=== PATIENT | female | born 1975 | race Caucasian/White ===

== ENCOUNTER 2017-11-11 15:07 | Emergency (ER) | payer BC ==
[2017-11-11 15:57] VITALS: BP 137/85
--- NOTE | 2017-11-11 16:42 | UC ---
Azalia Le Gabriel, scribed for Michael Suggs MD on 11/11/17 at 1540 . Cardiac HPI - HPI Summary HPI Summary: This patient is a 41 year old F [place] [facility] [place] chief complaint of chest pressure that began a few evenings ago that began while driving. The pain lasts a few hours then resolves. The patient rates the pain 5/10 in severity and located in the left anterior chest. Patient reports left arm tingling and light headedness. Patient denies nvd, diaphoresis, and SOB. Pt relates the symptoms are similar to an anxiety attack shes had before. - History of Current Complaint Stated Complaint: CHEST PAIN Time Seen by Provider: 11/11/17 15:09 Hx Obtained From: Patient Onset/Duration: Lasting Days, Still Present Timing: Constant Initial Severity: Mild Current Severity: Mild Pain Intensity: 5 Chest Pain Location: Left Anterior Character: Pressure/Squeezing Associated Signs & Symptoms: Positive: Negative - nvd, diaphoresis, and SOB - Allergy/Home Medications Allergies/Adverse Reactions: Allergies Allergy/AdvReac Type Severity Reaction Status Date / Time No Known Allergies Allergy Verified 11/11/17 16:00 PMH/Surg Hx/FS Hx/Imm Hx Previously Healthy: Yes Other History Of: Negative For: HIV, Hepatitis B, Hepatitis C - Surgical History Surgical History: Yes Surgery Procedure, Year, and Place: appendectomy - Family History Known Family History: Positive: Hypertension Negative: Cardiac Disease, Diabetes, Renal Disease, Respiratory Disease, Seizure Disorder, Blood Disorder - Social History Alcohol Use: Daily - 2 drinks a night Substance Use Type: None Smoking Status (MU): Former Smoker Review of Systems Respiratory: Negative - SOB Cardiovascular: Chest Pain Gastrointestinal: Negative - NVD Neurological: Other - some left arm tingling and light headedness All Other Systems Reviewed And Are Negative: Yes Physical Exam Triage Information Reviewed: Yes Vital Signs: Initial Vital Signs Temp 98.7 F 11/11/17 15:27 Pulse 77 11/11/17 15:27 Resp 20 11/11/17 15:27 BP 137/85 11/11/17 15:27 Pulse Ox 99 11/11/17 15:27 Vital Signs Reviewed: Yes - Additional Comments VITAL SIGNS: Reviewed. GENERAL: Patient is a well developed and nourished F who is lying comfortable in the stretcher. Patient is not in any acute respiratory distress. HEAD AND FACE: Normocephalic EYES: PERRLA, EOMI x 2. EARS: Hearing grossly intact. MOUTH: Oropharynx within normal limits. NECK: Supple, trachea is midline, no adenopathy, no JVD, no carotid bruit. CHEST: Symmetric, no tenderness at palpation LUNGS: Clear to auscultation bilaterally. No wheezing or crackles. CVS: Regular rate and rhythm, S1 and S2 present, no murmurs or gallops appreciated. ABDOMEN: Soft, non-tender. Bowel sounds are normal. No abdominal abnormal pulsations. EXTREMITIES: Full ROM in all major joints, no edema, no cyanosis or clubbing. NEURO: Alert and oriented x 3. No acute neurological deficits. Speech is normal and follows commands. SKIN: Dry and warm Diagnostics - EKG Cardiac Rate: NL - at 69 BPM Cardiac Rhythm: Sinus: Normal - no st elevations, poor quality EKG, normal axis - Assessment/Plan Course Of Treatment: I discussed all the findings and test results with the patient. Pt was instructed to return to the urgent care or go to ER immediately if any of the symptoms return or worsens. Plan of care was discussed with the patient and pt understands and agrees. All questions were answered to patient satisfaction. There were no further complaints or concerns. EKG reveals no st elevations, poor quality EKG, and normal axis. Patient has had the pressure pain for a couple hours into the left arms. Even though the patient doesnt have any formal morbidities she was recommend to go to the ED for further work up and management the patient declined ambulance transport to the ED because of the presentation of the CP she was advised to go the ED. The patient was found to have increase BP in UC. The patient will follow up with PCP for better control of BP. - Clinical Impression Provider Diagnoses: Chest pain without acute coronary syndrome, anxiety, elevated blood pressure without history of hypertension Discharge - Discharge Plan Condition: Stable Disposition: HOME Patient Education Materials: Chest Pain (DC) Referrals: No Primary Care Phys,NOPCP [Primary Care Provider] - Additional Instructions: Patient recommended to go to the ED for further work up. Your blood pressure was elevated during todays visit; please follow up with your primary care provider within a week for further evaluation. The documentation as recorded by the Azalia cotter Gabriel accurately reflects the service I personally performed and the decisions made by Ifeanyi campbell Walter, MD.
== END 2017-11-11 16:33 | disposition home or self-care (01) ==
LOC: UCEAST 15:07
DX: R07.9 Chest pain, unspecified (principal); F41.9 Anxiety disorder, unspecified; R03.0 Elevated blood-pressure reading, without diagnosis of hypertension; Z87.891 Personal history of nicotine dependence
CPT/HCPCS: 93005; 99202; G0463

== ENCOUNTER 2017-11-11 16:19 | Emergency (ER) | payer BC ==
--- NOTE | 2017-11-11 18:44 | RAD ---
HISTORY: Chest pain COMPARISONS: None VIEWS: 1: frontal portable view of the chest at 6:29 PM FINDINGS: LINES AND TUBES: None. CARDIOMEDIASTINAL SILHOUETTE: The cardiomediastinal silhouette is normal for portable technique. PLEURA: The costophrenic angles are sharp. No pleural abnormalities are noted. LUNG PARENCHYMA: The lungs are clear. ABDOMEN: The upper abdomen is clear. There is no subphrenic gas. BONES AND SOFT TISSUES: No bone or soft tissue abnormalities are noted. IMPRESSION: NO ACTIVE CARDIOPULMONARY DISEASE.
[2017-11-11] MEDS ORDERED: Aspirin Low Dose CHEW TAB* 81 MG PO ONE (18:45)
[2017-11-11 19:29] LABS: ABS Basophils 0 10^3/ul (0-0.2); ABS Eosinophils 0.1 10^3/ul (0-0.6); ABS Lymphocytes 1.9 10^3/ul (1.0-4.8); ABS Monocytes 0.5 10^3/ul (0-0.8); ABS Neutrophils 5.3 10^3/ul (1.5-7.7); ABS Nucleated RBC 0 10^3/ul; Eosinophil % 1.8 % (0-6); Hematocrit 39 % (35-47); Hemoglobin 13.3 g/dl (12.0-16.0); Lymphocyte % 23.8 % (25-47); Mean Corpuscular HGB Conc 34 g/dl (31-36); Mean Corpuscular Hemoglobin 30 pg (27-31); Mean Corpuscular Volume 89 fL (80-97); Mean Platelet Volume 8 um3 (7.4-10.4); Nucleated Red Blood Cells % 0; Platelet Count 321 10^3/ul (150-450); Red Blood Count 4.38 10^6/ul (4.0-5.4); Red Cell Distribution Width 13 % (10.5-15); White Blood Count 7.9 10^3/ul (3.5-10.8)
[2017-11-11 19:45] LABS: EGFR Non-African American 90.3 (>60)
[2017-11-11 19:46] LABS: INR 0.97 (0.77-1.02)
[2017-11-11 20:23] LABS: Urine Appearance Clear; Urine Blood 1+ (Negative); Urine Color Yellow; Urine Ketones Negative (Negative); Urine Protein Negative (Negative); Urine Urobilinogen Negative (Negative)
[2017-11-11 22:44] VITALS: BP 123/82
--- NOTE | 2017-11-12 22:40 | ED ---
Luis Le Stephanie, scribed for Cristian Michel MD on 11/11/17 at 1833 . HPI Chest Pain - HPI Summary HPI Summary: The pt is a 41 y/o F presenting to the ED with c/o CP that began 14:00 today. Symptoms include tingling and numbness in L arm. The CP initially began on . The pt states the CP feels like a heavy weight on chest intermittently lasting about 1 hour. She reports feeling anxious and depressed. The pt reports recent stressors such as separation with her , caring for kids, financial stability, and the father of her children taking her kids on a trip. - History of Current Complaint Chief Complaint: EDChestWallPain Time Seen by Provider: 11/11/17 18:13 Hx Obtained From: Patient Hx Last Menstrual Period: 11/08/2017 Onset/Duration: Started Days Ago - 4 Timing: Intermittent, Lasting Hours - 1 Current Severity: None Pain Intensity: 0 Pain Scale Used: 0-10 Numeric Chest Pain Location: Mid Sternal Chest Pain Radiates: No Character: Heaviness Aggravating Factor(s): Exertion, Other: - stress Alleviating Factor(s): Nothing Associated Signs and Symptoms: Positive: Chest Pain, Numbness - L arm, Tingling - L arm - Allergy/Home Medications Allergies/Adverse Reactions: Allergies Allergy/AdvReac Type Severity Reaction Status Date / Time No Known Allergies Allergy Verified 11/11/17 16:00 PMH/Surg Hx/FS Hx/Imm Hx Endocrine/Hematology History: Denies: Hx Diabetes, Hx Thyroid Disease Cardiovascular History: Denies: Hx Hypertension Sensory History: Reports: Hx Contacts or Glasses - Surgical History Surgery Procedure, Year, and Place: appy as a child Infectious Disease History: No Infectious Disease History: Denies: Traveled Outside the [place] in Last 30 Days - Family History Known Family History: Positive: Unknown - Denies all fhx - Social History Occupation: Employed Part-time Lives: With Family Alcohol Use: Daily Substance Use Type: Reports: None Smoking Status (MU): Former Smoker Review of Systems Negative: Fever, Chills Negative: Erythema Negative: Sore Throat Positive: Chest Pain Negative: Shortness Of Breath, Cough Negative: Abdominal Pain, Vomiting, Nausea Negative: dysuria, hematuria Negative: Myalgia, Edema Negative: Rash Neurological: Other - Negative: dizziness Positive: Anxious, Depressed All Other Systems Reviewed And Are Negative: Yes Physical Exam - Summary Physical Exam Summary: Constitutional: Well-developed, Well-nourished, Alert. tearful Skin: Warm, Dry HENT: Normocephalic; Atraumatic Eyes: Conjunctiva normal Neck: Musculoskeletal ROM normal neck. (-) JVD, (-) Stridor, (-) Tracheal deviation Cardio: Rhythm regular, rate normal, Heart sounds normal; Intact distal pulses; The pedal pulses are 2+ and symmetric. Radial pulses are 2+ and symmetric. (-) Murmur Pulmonary/Chest wall: Effort normal. (-) Respiratory distress, (-) Wheezes, (-) Rales Abd: Soft, (-) Tenderness, (-) Distension, (-) Guarding, (-) Rebound, no reproducible tenderness Musculoskeletal: (-) Edema Lymph: (-) Cervical adenopathy Neuro: Alert, Oriented x3 Psych: Mood and affect Normal Triage Information Reviewed: Yes Vital Signs On Initial Exam: Initial Vitals Temp Pulse Resp BP Pulse Ox 97.9 F 84 18 136/83 100 11/11/17 16:23 11/11/17 16:23 11/11/17 16:23 11/11/17 16:23 11/11/17 16:23 Vital Signs Reviewed: Yes Diagnostics - Vital Signs Vital Signs Temp Pulse Resp BP Pulse Ox 11/11/17 16:23 97.9 F 84 18 136/83 100 - Laboratory Result Diagrams: 11/11/17 19:14 11/11/17 19:14 Lab Statement: Any lab studies that have been ordered have been reviewed, and results considered in the medical decision making process. - Radiology CXR Xray Interpretation: No Acute Changes Radiology Interpretation Completed By: Radiologist - NO ACTIVE CARDIOPULMONARY DISEASE. - EKG 17:54 Cardiac Rate: NL EKG Rhythm: Sinus Rhythm - 83 BPM EKG Interpretation: no STEMI Chest Pain Course/Dx - Course Course Of Treatment: Situational CP in setting of significant stressors. Pt is JULIANN score zero. No active CP. OR is ruled out. - Diagnoses Provider Diagnoses: Chest pain, unspecified, Stress reaction Discharge - Discharge Plan Condition: Stable Disposition: HOME Patient Education Materials: Stress (ED), Chest Pain (ED) Referrals: Daryl Mcconnell MD [Primary Care Provider] - 3 Days Michelle Dia MD [Medical Doctor] - 3 Days Additional Instructions: RETURN TO THE EMERGENCY DEPARTMENT FOR CHANGING OR WORSENING SYMPTOMS The documentation as recorded by the Luis cotter Stephanie accurately reflects the service I personally performed and the decisions made by me, Cristian Michel MD.
== END 2017-11-11 22:46 | disposition home or self-care (01) ==
LOC: ED 16:19
DX: R07.9 Chest pain, unspecified (principal); F43.9 Reaction to severe stress, unspecified; Z87.891 Personal history of nicotine dependence
CPT/HCPCS: 36415; 71045; 80053; 81003; 81015; 82550; 82553; 83735; 84443; 84484; 84702; 85025; 85610; 93005; 99283; A9270-GY